=== PATIENT | female | born 1975 | race American Indian/Alaskan Native ===

== ENCOUNTER 2021-02-18 09:41 | Outpatient (CLI) | payer OTHER ==
--- NOTE | 2021-02-18 11:04 | XRay Report ---
Lumbar spine 4 views INDICATION: Back pain FINDINGS: Alignment appears normal. Sacrum and sacroiliac joints appear normal. No compression fractu re. No subluxation. IMPRESSION: No acute findings. Right knee INDICATION: Pain FINDINGS: Alignment appears normal. Mild tricompartmental degenerative change with joint space narrow ing throughout. No large joint effusion. IMPRESSION: Tricompartmental degenerative change. Signer Name: Rachid Vega MD Signed: 02/18/2021 11:00 AM Workstation Name: [id number]
== END 2021-02-18 09:42 | disposition home or self-care (01) ==
LOC: XRAY 09:41
PROVIDERS: ATTEND Internal Medicine
DX: M17.0 Bilateral primary osteoarthritis of knee (principal); M54.5 Low back pain
CPT/HCPCS: 72100